=== PATIENT | female | born 2000 | race Two or more races ===

== ENCOUNTER 2025-07-23 22:28 | Inpatient (IN) | payer MEDICAID, SELFPAY ==
--- NOTE | 2025-07-22 07:19 | ESHP_ITS ---
RE: ANTWAN CHILEL : 2000 DATE OF ADMISSION: 07/23/2025 HISTORY OF PRESENT ILLNESS: This is a 25-year-old 1 para 0 with due date of 08/06 with intrauterine at 38 weeks on 07/23 who presents for induction of labor for intrauterine growth restriction. The patient has been followed with serial ultrasounds showing growth at less than 10th percentile. The most recent maternal medicine ultrasound showed growth at the 5th percentile overall with abdominal circumference at the 4th percentile with recommendation for delivery between 38 and 39 weeks. Her care was also complicated by iron deficiency anemia and an incidental finding of a right dermoid cyst measuring 4.2 cm. Estimated weight 6 lbs. MEDICATIONS: multivitamin 1 p.o. daily. Ferrous sulfate 325 mg 1 p.o. b.i.d. PAST MEDICAL HISTORY: Iron deficiency anemia, dermoid cyst right ovary. FAMILY HISTORY: Denies. PAST SURGICAL HISTORY: Denies. REVIEW OF SYSTEMS: She denies any chest pain, palpitations, cough, fever, flank pain, shortness of breath, or lower extremity pain. PHYSICAL EXAMINATION: VITAL SIGNS: Blood pressure 125/62, heart rate 66, respirations 18, temperature 98.2. HEENT: Oropharynx and sclerae clear. LUNGS: Clear to auscultation bilaterally. HEART: Regular rate rhythm. ABDOMEN: Gravid, term size. PELVIC: See RN notes. EXTREMITIES: Nontender. SKIN: No gross rashes or lesions. NEUROLOGIC: No deficit. ASSESSMENT AND PLAN: Intrauterine at 38 weeks and 0 days on 07/23. Intrauterine growth restriction. Induction of labor. Anticipate spontaneous vaginal delivery. Informed consent was obtained. Patient has been made aware of the risks complications alternative benefits of the proposed procedure and she agrees. DT: 06:09:22 TT: 07:18:00 Ref: [id number] - TID: [id number] MTD
[2025-07-23 22:42] VITALS: BMI 27.5
[2025-07-23 22:49] VITALS: BP 121/67; PULSE 82
[2025-07-23 22:57] VITALS: BMI 27.5
[2025-07-23] MEDS: RINGERS LACTATED 1000 ML 1,000 ML 100 ML IV (22:59)
[2025-07-23 23:00] VITALS: RESP 16; TEMP 36.8
[2025-07-23 23:16] LABS: Basophils # (Auto) 0.0 Thou/mm3 (0.0-0.2); Basophils % (Auto) 0 % (0-2.5); Eosinophils # (Auto) 0.1 Thou/mm3 (0.0-0.5); Eosinophils % (Auto) 1 % (0-10); Hematocrit 35.2 % (36.0-46.0); Hemoglobin 11.7 g/dL (12.0-16.0); Immature Granulocytes Auto 0.14 Thou/mm3 (0.00-0.00); Lymphocytes # (Auto) 1.9 Thou/mm3 (1.0-4.8); Lymphocytes % (Auto) 19 % (10-50); Mean Corpuscular HGB Conc 33.2 g/dl (31.0-37.0); Mean Corpuscular Hemoglobin 32.1 pg (25.0-35.0); Mean Corpuscular Volume 96 fL (80-100); Monocytes # (Auto) 0.8 Thou/mm3 (0.0-0.8); Monocytes % (Auto) 8 % (0-12); Neutrophils # (Auto) 7.2 Thou/mm3 (1.8-7.7); Neutrophils % (Auto) 71 % (37-80); Nucleated Red Blood Cell # 0.00 Thou/mm3 (0.00-0.00); Nucleated Red Blood Cell % 0 /100 WBC (0); Platelet Count 289 Thou/mm3 (140-440); RDW Standard Deviation 49.2 fL (36.4-46.3); Red Blood Count 3.65 Miln/mm3 (4.00-5.20); White Blood Count 10.2 Thou/mm3 (3.6-11.0)
--- NOTE | 2025-07-23 23:28 | XR_ITS ---
Examination: Complete OB ultrasound greater than 14 weeks Date and time of exam: July 23, 2025, 1146 hours INDICATIONS: Labor induction preop, diagnosis small for gestational age Findings: Viable intrauterine single fetus with single amniotic sac presentation cephalic Cardiac motion 143 bpm Placenta fundal maternal right grade 2 Umbilical cord insertion 3 vessel seen Amniotic fluid index 10.3 cm Cervix 3.5 cm Ovaries obscured by the fetus. Composite estimated gestational age based on BPD, head circumference, abdominal circumference, femur length is 37 weeks 0 days Estimated weight 2960.8 g. Survey of intracranial anatomy, spinal anatomy, abdominal anatomy, four-chamber heart performed with no abnormalities identified. Impression: Viable intrauterine gestation cephalic presentation.
[2025-07-23 23:36] VITALS: BP 104/60; PULSE 84
[2025-07-24] VITALS (17 sets, daily range): BP systolic 97–120; BP diastolic 55–73; PULSE 72–90; RESP 14–20; TEMP 36.6–37.2
[2025-07-24 00:30] LABS: Syphilis Nonreactive (Nonreactive)
--- NOTE | 2025-07-24 01:28 | PRELIM_ITS ---
Obstetric ultrasound. July 23, 2025 at 2346 hours Clinical history: SGA, unable to determine presentation. Comparison: No prior study is available for comparison. Findings: There is a gravid uterus with a live fetus in cephalic presentation of mean gestational age 37 weeks and 0 days (by biometry). cardiac activity is present at a heart rate of 143 beats per minute. The placenta is in fundal and maternal right location, maturity grade 2. There is prominent intraplacental venous stahl measuring 1.6 x 1 x 1 (image 39/119). There is no evidence of placenta previa or retroplacental hemorrhage. Amniotic fluid is adequate (INDRA = 10.3 cm). There is a 3-vessel umbilical cord. The anatomy is unremarkable to the extent visualized. Estimated weight is 2960 grams+/- 48 grams. Estimated due date by ultrasound is 08/13/2025. The cervix measures 3.5 cm in length. Both ovaries are not seen due to advanced gestational age. No pelvic free fluid. Impression: Gravid uterus with a single live fetus in cephalic presentation of mean gestational age 37 weeks 0 days. Other findings as described above. Report Electronically Signed By: Enoz Zacarias 07/24/2025 1:27:52 AM [EST]
--- NOTE | 2025-07-24 08:11 | PD.LDPN ---
Documentation for date of: 07/24/25 OB Labor Progress Note Pain Control Comments: None needed Pelvic Exam Amniotic membrane status: Intact Comments: See RN notes Contractions Monitor mode: External Contraction frequency: occasional Contraction intensity: Mild Status status: Category l Assessment and Plan Comments: Cervidil cervical ripening on going.
[2025-07-24] MEDS: RINGERS LACTATED 1000 ML 1,000 ML 100 ML IV ×2 (13:34→17:52)
[2025-07-25] VITALS (25 sets, daily range): BP systolic 88–128; BP diastolic 50–76; PULSE 65–84; RESP 16–17; TEMP 36.6–37.1
[2025-07-25] MEDS: RINGERS LACTATED 1000 ML 1,000 ML 100 ML IV (04:27)
--- NOTE | 2025-07-25 07:40 | PD.LDPN ---
Documentation for date of: 07/25/25 OB Labor Progress Note Pain Control Comments: None needed Pelvic Exam Dilation (cm): close Effacement (%): thick station: -3 Amniotic membrane status: Intact Contractions Monitor mode: External Contraction frequency: 1-6 Contraction intensity: Mild Status status: Category l Assessment and Plan Comments: Cervical Ripening On-going S/P cervidil x 2 and oral cytotec 50mcg x 3 Cervical exam at 0800.
[2025-07-26] VITALS (19 sets, daily range): BP systolic 88–132; BP diastolic 47–85; PULSE 60–95; RESP 17–27; TEMP 36.3–37; O2SAT 98–100
[2025-07-26] MEDS: RINGERS LACTATED 1000 ML 1,000 ML 100 ML IV ×2 (00:02→12:48)
--- NOTE | 2025-07-26 07:32 | PD.LDPN ---
Documentation for date of: 07/26/25 OB Labor Progress Note Pelvic Exam Dilation (cm): fingertip Effacement (%): thick station: -3 Amniotic membrane status: Intact Contractions Monitor mode: External Contraction frequency: 4-6 Contraction pattern: Coupling Contraction intensity: Mild Status status: Category l Assessment and Plan Comments: Failed induction delivery Informed consent was obtained. The patient was made aware of the risks, complications, alternatives and benefits of the proposed procedure and she agrees. History of Present Illness HPI Patient declines further trial of induction of labor
[2025-07-26] MEDS: FAMOTIDINE INJ 10 MG/ML VIAL 2 ML 20 MG IV (16:29)
[2025-07-26] MEDS: ceFAZolin/D5W 2 GM IV 2 GM/100 ML BAG IV (16:29)
[2025-07-26] MEDS: CITRIC ACID/SODIUM CITR 15 ML UDC (BICITRA) 30 ML PO (16:29)
--- NOTE | 2025-07-26 16:33 | ESOP_ITS ---
Operative Note - NURSING SERVICES MANAGER Procedure Date of procedure: 07/26/25 Procedure Performed: Primary low-transverse section via Pfannenstiel skin incision Right ovarian cystectomy Indication: Intrauterine at 38 weeks and 3 days Intrauterine growth restriction Induction of labor Failed induction Pre-Op diagnosis: Intrauterine at 38 weeks and 3 days Intrauterine growth restriction Induction of labor Failed induction Post-Op diagnosis: Intrauterine at 38 weeks and 3 days Intrauterine growth restriction Induction of labor Failed induction Endometriosis Right Endometrioma Anesthesia type: Spinal Procedure description: After proper informed consent was obtained and the patient was made aware of the risks, complications, alternatives and benefits of the proposed procedure she was taken to the operating room where she underwent induction of spinal anesthesia. She was prepped and draped in the usual sterile fashion. A timeout was performed.? A Pfannenstiel skin incision was made with the scalpel and carried through to the underlying layer of fascia with the Bovie. The fascia was nicked in the midline incision and the incision was extended bilaterally with the Bovie. The inferior aspect of the fascial incision was grasped with Shahram clamps elevated and the underlying rectus muscle dissected off with the Bovie. The superior aspect the fascial incision was grasped with Shahram clamps elevated and the underlying rectus muscle dissected off with the Bovie. The rectus muscles were in the midline. The peritoneum was grasped between 2 Choi clamps and entered sharply with the Metzenbaum scissors. The peritoneum was extended superiorly and inferiorly with good visualization of the bladder. The vesicouterine peritoneum was incised transversely and the bladder flap created digitally. A Dominic blade was inserted. A low transverse incision was made in the uterus with a scapel and the incision was extended digitally. The 's head delivered and the mouth and nose were suctioned with the bulb suction. The shoulder and body delivered atraumatically. The cord was clamped after 30 second delayed cord clamping and the cord was cut.? The male infant was handed off to the waiting Pediatric staff, cord blood was collected for lab testing. The placenta was removed complete and intact. The uterus was exteriorized and cleared of all clots and debris. The uterine incision was closed with #1-0 chromic catgut suture in a running interlocking fashion. A second layer of the same suture was used to imbricate the first layer and obtain excellent hemostasis. The vesicouterine peritoneum was closed with 2-0 chromic catgut s uture in a running fashion. The right ovarian cyst was removed with the EnsealX1 large jaw. Hemostasis of acheived. The firm uterus was returned to the abdomen. The gutters were cleared of all clots and debris. The peritoneum was closed with 0 chromic catgut suture in running fashion. The rectus muscle was closed with 0 chromic catgut suture. The fascia was closed with 0 Vicryl beginning at each a ngle and ending in the center in a running fashion. The subcutaneous tissue was irrigated with warmed normal saline solution and found to be hemostatic. The subcutaneous tissue was closed with 2-0 chromic catgut suture in a running fashion. The skin was closed with 4-0 Monocryl. A Dermabond Prineo dressing was applied and a sterile pressure dressing was applied.? She tolerated the procedure well. Counts were correct. I discussed with the patient the nature of her condition, intraoperative findings and expectation for recovery all? questions answered Specimen: other (right ovarian cyst) Findings: Live infant male Apgars 8 and 9 Weight 6 lbs 2 oz Placenta removed complete intact Cephalic Clear amniotic fluid Fallopian tubes grossly within normal limits Right ovary contained a 3 x 3 cm endometrioma with chocolate fluid Left ovary contained superficial endometriotic implants Posterior serosal and anterior serosal surface of uterus contained endometriotic implants Posterior uterosacral ligaments and posterior cul de sac contained endometriotic implants. Complications: none Surgical staff ARTHUR Cheatham Dr, Surgeon Operation Date: 07/26/25 16:45 <No data on this case meets the specified criteria> Diagnosis Problem List Completed Was Problem List Reviewed/Reconciled?: Yes
--- NOTE | 2025-07-26 16:33 | ESDS_ITS ---
DS: Providers Provider Date of admission: 07/23/25 22:28 Primary care physician: Physician No Primary/Family Admitting Provider: Arnoldo Chisholm MD Attending Provider on Admission: Arnoldo Chisholm MD Attending Provider on DC: Arnoldo Chisholm MD Discharging Provider: Arnoldo Chisholm MD DS: Diagnosis Problem List Completed Was Problem List Reviewed/Reconciled?: Yes Summary/Hosp Course Brief History: Patient declines further trial of induction of labor Peripartum Data Procedures: Procedures Operation Date: 07/26/25 16:45 <No data on this case meets the specified criteria> Time Spent with Patient Time attestation: Total time spent providing and/or coordinating discharge services: Exam Vital Signs Temp Pulse Resp BP O2 Del Method 98.1 F 60 20 105/60 Room Air 07/26/25 12:51 07/26/25 12:48 07/26/25 12:51 07/26/25 12:48 07/26/25 12:51 Discharge Plan Plan Patient Disposition: HOME (Self Care) Patient condition on transfer: Stable Prescriptions/Referrals Prescriptions/Med Rec: New hydrocodone-acetaminophen 5-325 mg tablet 1 tab PO Q6H MDD 4 PRN (Reason: pain) Qty: 20 0RF ibuprofen 600 mg tablet 600 mg PO Q6H PRN (Reason: pain) Qty: 30 0RF amoxicillin-pot clavulanate 875-125 mg tablet 1 tab PO Q12H Qty: 10 0RF Referrals: No Primary/Family,Physician [Primary Care Provider] Patient/Caregiver Discharge Instructions Discharge Activity: activity as tolerated Other Discharge Activity Instructions:: Follow up office 2 weeks. Mayank Chisholm en 2 semanas Education Materials: Breast Care After , After a , Nutrition While , C Section Dc Print Language: Khmer Stand Alone Forms: Jessika Award Info., Patient Portal Info Letter Discharge Order Discharge Orders: Discharge (Routine); Ordered 07/28/25 Ordered By: Arnoldo Chisholm Planned Discharge Date 07/26/25
--- NOTE | 2025-07-26 18:53 | PC.NURSE ---
orders received from DR DON in OR to administer ordered 800mcg cytotec OR.
--- NOTE | 2025-07-26 18:54 | PC.NURSE ---
orders received from Dr Chisholm in OB OR to administer ordered 800mcg cytotec [place]
[2025-07-26] MEDS: KETOROLAC INJ 30 MG/ML VIAL IVP (19:37)
--- NOTE | 2025-07-26 19:50 | OBDSUM_ITS ---
Data (King) Data : 1 Delivery Data (King) Labor Data Initiation of labor: Induction Induction/Augmentation Agent: Cytotec-PO and Cervidil ROM date: 07/26/25 ROM time: 17:05 Amniotic membrane rupture type: Artificial Amniotic fluid description: Clear Delivery Data EDC: 08/06/25 EDC calculated by:: LMP/early US confirmation [place] delivery date: 07/26/25 [place] delivery time: 17:05 Gestational age (weeks): 38 Gestational age (days): 3 Placenta delivery date: 07/26/25 Placenta delivery time: 17:06 Delivered by: Arnoldo Chisholm Delivery nurse: LETICIA Bernstein [place] nurse: LETICIA Benton Dietetics Teacher at delivery: No Support person(s) at delivery: FOB Delivery Method Delivery method: Low Transverse Presentation: Vertex position: OP Anesthesia Type Anesthesia Type: Spinal Anesthesia type: Spinal Placenta Placenta delivery description: Manual Removal Cord blood sent to lab: Yes cord blood collection: Cord Blood Type EBL Estimated blood loss (ml): 900 Additional Procedures Right ovarian cystectomy Complications Complications: None [place] Data (King) Data order: 1 [place]'s gender: Male Identification band number: [id number] weight (gms): 6 lb 2.062 oz Weight (pounds): 6 lbs and 2.1 ozs 1 minute: 8 5 minutes: 9
[2025-07-26 23:19] LABS: Basophils # (Auto) 0.0 Thou/mm3 (0.0-0.2); Basophils % (Auto) 0 % (0-2.5); Eosinophils # (Auto) 0.0 Thou/mm3 (0.0-0.5); Eosinophils % (Auto) 0 % (0-10); Hematocrit 34.1 % (36.0-46.0); Hemoglobin 11.5 g/dL (12.0-16.0); Immature Granulocytes Auto 0.16 Thou/mm3 (0.00-0.00); Lymphocytes # (Auto) 0.9 Thou/mm3 (1.0-4.8); Lymphocytes % (Auto) 4 % (10-50); Mean Corpuscular HGB Conc 33.7 g/dl (31.0-37.0); Mean Corpuscular Hemoglobin 32.0 pg (25.0-35.0); Mean Corpuscular Volume 95 fL (80-100); Monocytes # (Auto) 0.4 Thou/mm3 (0.0-0.8); Monocytes % (Auto) 2 % (0-12); Neutrophils # (Auto) 19.9 Thou/mm3 (1.8-7.7); Neutrophils % (Auto) 93 % (37-80); Nucleated Red Blood Cell # 0.00 Thou/mm3 (0.00-0.00); Nucleated Red Blood Cell % 0 /100 WBC (0); Platelet Count 252 Thou/mm3 (140-440); RDW Standard Deviation 47.3 fL (36.4-46.3); Red Blood Count 3.59 Miln/mm3 (4.00-5.20); White Blood Count 21.5 Thou/mm3 (3.6-11.0)
[2025-07-26] MEDS: ACETAMINOPHEN 325 MG TABLET 650 MG PO (23:56)
[2025-07-27] VITALS (7 sets, daily range): BP systolic 101–111; BP diastolic 63–75; PULSE 75–88; RESP 15–18; TEMP 36.3–37.1; O2SAT 96–98
[2025-07-27] MEDS: OXYTOCIN in NS 20 units 20 UNIT/1,000 ML BAG 125 UNIT IV (01:24)
[2025-07-27] MEDS: IBUPROFEN TAB 400 MG TABLET 800 MG PO ×2 (05:34→13:44)
--- NOTE | 2025-07-27 06:52 | ESPR_ITS ---
RE: ANTWAN CHILEL : 2000 DATE OF SERVICE: 07/27/2025 SUBJECTIVE: Post op day #1. Patient denies any problem or complaints. She is voiding. She is ambulating. She is tolerating a regular diet. She is passing flatus. She denies any excessive vaginal bleeding. She denies any dizziness or lightheadedness. She denies any chest pain, palpitations, shortness of breath or lower extremity pain. OBJECTIVE: VITAL SIGNS: Blood pressure is 101/64, heart rate 75, respirations 18, temperature is 98.1, pulse ox is 98% on room air. LUNGS: Clear to auscultation bilaterally. HEART: Regular rate and rhythm. ABDOMEN: Dressing dry and intact. Nondistended. Fundus is firm. EXTREMITIES: Nontender. LABORATORY DATA: Hemoglobin pre-delivery is 11.7, post-delivery is 11.5. ASSESSMENT: Post op day #1 status post delivery and right ovarian cystectomy. PLAN: Remove dressing. Discontinue IV. Encourage ambulation. support. Possible discharge home tomorrow. DT: 06:15:33 TT: 06:52:00 Ref: [id number] - TID: [id number]
[2025-07-27] MEDS: ENOXAPARIN SOD INJ 40 MG/0.4 ML SYRINGE SC (08:13)
[2025-07-27] MEDS: DOCUSATE SOD 100 MG CAPSULE PO (08:13)
[2025-07-27] MEDS: AMPICILLIN/SULBAC INJ 3 GM in SODIUM CHLORIDE 0.9% (POP) 100 ML IV (20:58)
[2025-07-28] MEDS: KETOROLAC INJ 30 MG/ML VIAL IVP (00:52)
--- NOTE | 2025-07-28 02:19 | PC.NURSE ---
07/28/25 @0235 Encouraged Pt to walk, Pt refused and expressed that she felt it is our fault & she is having pain due to fundal checks, I was concerned & had Charge nurse Yasmine reassess her tenderness. Pt's said we caused the Pt's pain and continue to do fundals even though she's not bleeding. I explained to PT & her that the fundal massages are what help stop the bleeding & only 1 was done during my shift due to the patients pain & DrNixon orders to stop massages. I adviced pt to walk but she says she is fine, I explained her pain is temporarily relived due to pain meds, Pt continues to refuse to ambulate.
[2025-07-28] MEDS: AMPICILLIN/SULBAC INJ 3 GM in SODIUM CHLORIDE 0.9% (POP) 100 ML IV ×2 (03:02→08:55)
[2025-07-28] MEDS: SIMETHICONE 80 MG CHEW PO (03:58)
[2025-07-28 04:00] VITALS: BP 106/64; PULSE 84; RESP 18; TEMP 36.4; O2SAT 98
[2025-07-28 05:48] LABS: Basophils # (Auto) 0.0 Thou/mm3 (0.0-0.2); Basophils % (Auto) 0 % (0-2.5); Eosinophils # (Auto) 0.1 Thou/mm3 (0.0-0.5); Eosinophils % (Auto) 1 % (0-10); Hematocrit 27.9 % (36.0-46.0); Hemoglobin 9.2 g/dL (12.0-16.0); Immature Granulocytes Auto 0.10 Thou/mm3 (0.00-0.00); Lymphocytes # (Auto) 1.8 Thou/mm3 (1.0-4.8); Lymphocytes % (Auto) 13 % (10-50); Mean Corpuscular HGB Conc 33.0 g/dl (31.0-37.0); Mean Corpuscular Hemoglobin 31.8 pg (25.0-35.0); Mean Corpuscular Volume 97 fL (80-100); Monocytes # (Auto) 1.2 Thou/mm3 (0.0-0.8); Monocytes % (Auto) 9 % (0-12); Neutrophils # (Auto) 10.1 Thou/mm3 (1.8-7.7); Neutrophils % (Auto) 76 % (37-80); Nucleated Red Blood Cell # 0.00 Thou/mm3 (0.00-0.00); Nucleated Red Blood Cell % 0 /100 WBC (0); Platelet Count 255 Thou/mm3 (140-440); RDW Standard Deviation 48.5 fL (36.4-46.3); Red Blood Count 2.89 Miln/mm3 (4.00-5.20); White Blood Count 13.4 Thou/mm3 (3.6-11.0)
--- NOTE | 2025-07-28 06:32 | ESPR_ITS ---
RE: ANTWAN CHILEL : 2000 DATE OF SERVICE: 07/28/2025 SUBJECTIVE: Post op day #2, patient denies any problem or complaint. RN reported fundal tenderness yesterday evening, so patient was started on Unasyn. Her white blood cell count yesterday was 21.5. Lab results for this morning are pending. The patient is voiding and ambulating and tolerating regular diet and passing flatus. She denies any excessive vaginal bleeding. She denies any dizziness or lightheadedness. She denies any chest pain, palpitations, shortness of breath, or lower extremity pain. She has been afebrile since delivery. OBJECTIVE: VITAL SIGNS: Blood pressure 106/64, heart rate 84, respirations 18, temperature is 97.5 pulse ox is 98 % on room air. LUNGS: Clear to auscultation bilaterally. HEART: Regular rate and rhythm. ABDOMEN: Fundus is firm, nontender. Incision clear and intact. EXTREMITIES: Nontender. ASSESSMENT: Post op day #2 status post delivery. Antibiotics started for a presumptive endometritis. PLAN: Discharge home on oral antibiotics. Follow up in the office in 2 weeks. Discharge instructions given. DT: 05:49:39 TT: 06:30:00 Ref: [id number] - TID: [id number]
--- NOTE | 2025-07-28 06:35 | PC.NURSE ---
07/28/25 @0250 Pt refused to take abx, Spoke to charge nurse about situation. Pt educated by Dayna KELLY & agreed to take abx.
[2025-07-28 07:08] LABS: Basophils # (Auto) 0.0 Thou/mm3 (0.0-0.2); Basophils % (Auto) 0 % (0-2.5); Eosinophils # (Auto) 0.1 Thou/mm3 (0.0-0.5); Eosinophils % (Auto) 1 % (0-10); Hematocrit 29.5 % (36.0-46.0); Hemoglobin 10.0 g/dL (12.0-16.0); Immature Granulocytes Auto 0.11 Thou/mm3 (0.00-0.00); Lymphocytes # (Auto) 1.9 Thou/mm3 (1.0-4.8); Lymphocytes % (Auto) 14 % (10-50); Mean Corpuscular HGB Conc 33.9 g/dl (31.0-37.0); Mean Corpuscular Hemoglobin 32.8 pg (25.0-35.0); Mean Corpuscular Volume 97 fL (80-100); Monocytes # (Auto) 1.1 Thou/mm3 (0.0-0.8); Monocytes % (Auto) 9 % (0-12); Neutrophils # (Auto) 10.1 Thou/mm3 (1.8-7.7); Neutrophils % (Auto) 76 % (37-80); Nucleated Red Blood Cell # 0.00 Thou/mm3 (0.00-0.00); Nucleated Red Blood Cell % 0 /100 WBC (0); Platelet Count 248 Thou/mm3 (140-440); RDW Standard Deviation 49.8 fL (36.4-46.3); Red Blood Count 3.05 Miln/mm3 (4.00-5.20); White Blood Count 13.3 Thou/mm3 (3.6-11.0)
[2025-07-28 07:45] VITALS: BP 118/71; PULSE 80; RESP 20; TEMP 36.8; O2SAT 98
[2025-07-28] MEDS: DOCUSATE SOD 100 MG CAPSULE PO (08:43)
[2025-07-28] MEDS: ENOXAPARIN SOD INJ 40 MG/0.4 ML SYRINGE SC (08:43)
[2025-07-28] MEDS: IBUPROFEN TAB 400 MG TABLET 800 MG PO (12:10)
== END 2025-07-28 13:45 | disposition home or self-care (01) | DRG 540 ==
LOC: S4SX 07-26 16:29 → S4NX 07-26 16:38
PROVIDERS: Admitting Provider Specialist; Visit Provider Specialist
PROC: 10D00Z1 Extraction of Products of Conception, Low, Open Approach (ICD-10-PCS; CPT 59514; principal; 2025-07-26 16:30)
DX: O36.5930 Maternal care for other known or suspected poor fetal growth, third trimester, not applicable or unspecified (principal); Z3A.38 38 weeks gestation of pregnancy; Z37.0 Single live birth; O99.02 Anemia complicating childbirth; D50.9 Iron deficiency anemia, unspecified; O75.3 Other infection during labor; N80.123 Deep endometriosis of bilateral ovaries; N83.201 Unspecified ovarian cyst, right side; O34.83 Maternal care for other abnormalities of pelvic organs, third trimester
CPT/HCPCS: 36415; 76805; 85025; 86780; 86850; 86900; 86901; A4217; A4314; A4649; J0295; J0689; J1100; J1650; J1885; J2210; J2274; J2405; J2590; J2704; J3490; J7120; S0191; A9270; J2270